=== PATIENT | male | born 1960 | race Caucasian/White ===

== ENCOUNTER 2017-11-22 00:54 | Inpatient (IN) | payer OTHER ==
[2017-11-22 01:46] LABS: ADD MAN DIFF? NO
[2017-11-22 01:50] LABS: BASOPHILS % 0.4 % (0.0-2.0); EOSINOPHILS # 0.1 10^3/ul (0.0-0.5); EOSINOPHILS % 0.6 % (0.0-7.0); HEMATOCRIT 45.3 % (42.0-52.0); HEMOGLOBIN 15.9 g/dl (14.0-18.0); LYMPHOCYTES # 1.8 10^3/ul (0.8-2.9); LYMPHOCYTES % 16.8 % (15.0-51.0); MEAN CORPUSCULAR HEMOGLOBIN 29.7 pg (29.0-33.0); MEAN CORPUSCULAR HGB CONC 35.1 g/dl (32.0-37.0); MEAN CORPUSCULAR VOLUME 84.5 fl (82.0-101.0); MEAN PLATELET VOLUME 10.3 fl (7.4-10.4); MONOCYTE # 0.7 10^3/ul (0.3-0.9); MONOCYTES % 6.4 % (0.0-11.0); NEUTROPHIL # 8.2 10^3/ul (1.6-7.5); NEUTROPHILS % 75.5 % (39.0-77.0); PLATELET COUNT 207 10^3/UL (140-415); RED BLOOD COUNT 5.36 10^6/ul (4.70-6.10); RED CELL DISTRIBUTION WIDTH 12.4 % (11.5-14.5)
[2017-11-22 01:50] LABS: WHITE BLOOD COUNT 10.9 10^3/ul (4.8-10.8)
[2017-11-22] MEDS: IOHEXOL 300MG/ML 150 ML BTL (01:59)
[2017-11-22] MEDS: SOD CHLORIDE 0.9% 100 ML (01:59)
[2017-11-22 02:09] LABS: INR 0.97
[2017-11-22 02:10] LABS: PARTIAL THROMBOPLASTIN TIME 25.8 Sec (25.0-35.0)
[2017-11-22 02:25] LABS: ALANINE AMINOTRANSFERASE 33 IU/L (13-69); ALBUMIN 4.7 g/dl (3.3-4.9); ALBUMIN/GLOBULIN RATIO 1.62; ALKALINE PHOSPHATASE 124 IU/L (42-121); ANION GAP 18 (8-16); ASPARTATE AMINO TRANSFERASE 19 IU/L (15-46); BILIRUBIN,INDIRECT 0.6 mg/dl (0-1.1); BILIRUBIN,TOTAL 0.6 mg/dl (0.2-1.3); BLOOD UREA NITROGEN 13 mg/dl (7-20); CALCIUM 9.3 mg/dl (8.4-10.2); CARBON DIOXIDE 24 mmol/L (21-31); CHLORIDE 100 mmol/L (97-110); CHOL/HDL RATIO 4.1 RATIO; CHOLESTEROL 212 mg/dl (100-200); CREATININE 0.51 mg/dl (0.61-1.24); GLUCOSE 301 mg/dl (70-220); HDL CHOLESTEROL 51 mg/dl (28-71); LDL CHOLESTEROL,CALCULATED 138 mg/dl; POTASSIUM 3.4 mmol/L (3.5-5.1); SODIUM 139 mmol/L (135-144); TOTAL PROTEIN 7.6 g/dl (6.1-8.1); TRIGLYCERIDES 114 mg/dl (0-149)
[2017-11-22 02:35] LABS: TROPONIN-I < 0.012 ng/ml (0.00-0.12)
[2017-11-22 03:10] LABS: HEMOGLOBIN A1C 10.1 % (0-5.9)
[2017-11-22] MEDS ORDERED: ONDANSETRON 4 MG INJ IV (05:30)
[2017-11-22] MEDS ORDERED: morphine 2 MG INJ IV (05:30)
[2017-11-22] MEDS ORDERED: ACETAMINOPHEN 325 MG TAB PO (05:30)
[2017-11-22] MEDS ORDERED: NACL 0.9% 3 ML SYG IV (05:30)
[2017-11-22] MEDS ORDERED: hydrALAzine 20 MG INJ IV (05:30)
[2017-11-22] MEDS ORDERED: ALBUTEROL/IPRATROPIUM (NEB) 3 ML AMP HHN (05:30)
[2017-11-22] MEDS: HEPARIN 5,000 UNIT/0.5 ML VIAL SC ×2 (09:04→21:14)
[2017-11-22] MEDS: ASPIRIN 81 MG TAB PO (09:04)
[2017-11-22] MEDS ORDERED: DEXTROSE 50% 50 ML SYRINGE IV ×2 (09:30)
[2017-11-22] MEDS ORDERED: GLUCOSE GEL 15 GRAM TUBE BUCCAL (09:30)
[2017-11-22] MEDS ORDERED: GLUCAGON 1 MG INJ IM (09:30)
[2017-11-22] MEDS ORDERED: GLUCOSE GEL 15 GRAM TUBE PO ×2 (09:30)
[2017-11-22] MEDS: INSULIN GLARGINE [LANtus] 3 ML PEN SC (10:12)
[2017-11-22 12:32] LABS: ADD UMIC NO; UR ASCORBIC ACID NEGATIVE (NEGATIVE); UR BILIRUBIN (Dip) NEGATIVE (NEGATIVE); UR BLOOD (Dip) NEGATIVE (NEGATIVE); UR CLARITY CLEAR (CLEAR); UR COLOR YELLOW (YELLOW); UR GLUCOSE (Dip) 3+ mg/dL (NEGATIVE); UR KETONES (Dip) 1+ mg/dL (NEGATIVE); UR LEUKOCYTE ESTERASE (Dip) NEGATIVE Leu/ul (NEGATIVE); UR NITRITE (Dip) NEGATIVE (NEGATIVE); UR TOTAL PROTEIN (Dip) NEGATIVE (NEGATIVE); UR UROBILINOGEN (Dip) NEGATIVE (NEGATIVE)
[2017-11-22] MEDS: INSULIN ASPART [NOVOLOG] 3 ML PEN SC ×3 (12:47→20:12)
[2017-11-22 12:52] LABS: AMPHETAMINE/METHAMPHETAMINE Negative (NEGATIVE); BARBITURATES Negative (NEGATIVE); BENZODIAZEPINES Negative (NEGATIVE); CANNABINOIDS Negative (NEGATIVE); COCAINE Negative (NEGATIVE); OPIATES Negative (NEGATIVE)
[2017-11-22] MEDS ORDERED: INSULIN ASPART [NOVOLOG] 3 ML PEN SC (18:00)
[2017-11-22] MEDS: LINAGLIPTIN 5 MG TABLET PO (20:05)
[2017-11-22] MEDS: ATORVASTATIN 20 MG TAB PO (21:11)
[2017-11-22] MEDS: hydrALAzine 20 MG INJ IV (21:19)
[2017-11-23] MEDS: ACCU-CHEK XX (01:45)
[2017-11-23 05:46] LABS: ADD MAN DIFF? NO
[2017-11-23 05:53] LABS: WHITE BLOOD COUNT 6.4 10^3/ul (4.8-10.8)
[2017-11-23 05:53] LABS: BASOPHILS % 0.5 % (0.0-2.0); EOSINOPHILS # 0.1 10^3/ul (0.0-0.5); EOSINOPHILS % 1.6 % (0.0-7.0); HEMATOCRIT 47.6 % (42.0-52.0); HEMOGLOBIN 16.6 g/dl (14.0-18.0); LYMPHOCYTES # 2.1 10^3/ul (0.8-2.9); LYMPHOCYTES % 32.8 % (15.0-51.0); MEAN CORPUSCULAR HEMOGLOBIN 29.7 pg (29.0-33.0); MEAN CORPUSCULAR HGB CONC 34.9 g/dl (32.0-37.0); MEAN CORPUSCULAR VOLUME 85.2 fl (82.0-101.0); MEAN PLATELET VOLUME 10.6 fl (7.4-10.4); MONOCYTE # 0.5 10^3/ul (0.3-0.9); MONOCYTES % 7.6 % (0.0-11.0); NEUTROPHIL # 3.7 10^3/ul (1.6-7.5); NEUTROPHILS % 57.3 % (39.0-77.0); PLATELET COUNT 231 10^3/UL (140-415); RED BLOOD COUNT 5.59 10^6/ul (4.70-6.10); RED CELL DISTRIBUTION WIDTH 12.3 % (11.5-14.5)
[2017-11-23 06:05] LABS: HEMOGLOBIN A1C 10.1 % (0-5.9)
[2017-11-23 06:21] LABS: ALANINE AMINOTRANSFERASE 31 IU/L (13-69); ALBUMIN 4.2 g/dl (3.3-4.9); ALBUMIN/GLOBULIN RATIO 1.44; ALKALINE PHOSPHATASE 89 IU/L (42-121); ANION GAP 17 (8-16); ASPARTATE AMINO TRANSFERASE 22 IU/L (15-46); BILIRUBIN,INDIRECT 0.6 mg/dl (0-1.1); BILIRUBIN,TOTAL 0.6 mg/dl (0.2-1.3); BLOOD UREA NITROGEN 14 mg/dl (7-20); CALCIUM 9.2 mg/dl (8.4-10.2); CARBON DIOXIDE 24 mmol/L (21-31); CHLORIDE 104 mmol/L (97-110); CHOL/HDL RATIO 4.8 RATIO; CHOLESTEROL 217 mg/dl (100-200); CREATININE 0.53 mg/dl (0.61-1.24); GLUCOSE 179 mg/dl (70-220); HDL CHOLESTEROL 45 mg/dl (28-71); LDL CHOLESTEROL,CALCULATED 137 mg/dl; POTASSIUM 3.6 mmol/L (3.5-5.1); SODIUM 141 mmol/L (135-144); TOTAL PROTEIN 7.1 g/dl (6.1-8.1); TRIGLYCERIDES 174 mg/dl (0-149)
[2017-11-23] MEDS: INSULIN ASPART [NOVOLOG] 3 ML PEN SC ×9 (07:35→20:56)
[2017-11-23] MEDS: ASPIRIN 81 MG TAB PO (08:58)
[2017-11-23] MEDS: LINAGLIPTIN 5 MG TABLET PO (08:58)
[2017-11-23] MEDS: HEPARIN 5,000 UNIT/0.5 ML VIAL SC ×2 (08:59→20:59)
[2017-11-23] MEDS: INSULIN GLARGINE [LANtus] 3 ML PEN SC (09:00)
[2017-11-23] MEDS: LISINOPRIL 10 MG TAB PO (15:00)
[2017-11-23] MEDS: ATORVASTATIN 20 MG TAB PO (20:59)
[2017-11-24] MEDS: ACCU-CHEK XX (01:45)
[2017-11-24] MEDS: LINAGLIPTIN 5 MG TABLET PO (09:26)
[2017-11-24] MEDS: ASPIRIN 81 MG TAB PO (09:26)
[2017-11-24] MEDS: LISINOPRIL 10 MG TAB PO (09:27)
[2017-11-24] MEDS: HEPARIN 5,000 UNIT/0.5 ML VIAL SC ×2 (09:29→20:13)
[2017-11-24] MEDS: INSULIN ASPART [NOVOLOG] 3 ML PEN SC ×7 (11:00→20:12)
[2017-11-24] MEDS: INSULIN GLARGINE [LANtus] 3 ML PEN SC (11:01)
[2017-11-24] MEDS: ATORVASTATIN 20 MG TAB PO (21:36)
[2017-11-25] MEDS: ACCU-CHEK XX ×2 (02:30→20:04)
[2017-11-25] MEDS: INSULIN ASPART [NOVOLOG] 3 ML PEN SC ×7 (08:49→20:04)
[2017-11-25] MEDS: HEPARIN 5,000 UNIT/0.5 ML VIAL SC ×2 (08:50→20:04)
[2017-11-25] MEDS: LINAGLIPTIN 5 MG TABLET PO (08:50)
[2017-11-25] MEDS: ASPIRIN 81 MG TAB PO (08:51)
[2017-11-25] MEDS: LISINOPRIL 10 MG TAB PO (08:53)
[2017-11-25] MEDS: INSULIN GLARGINE [LANtus] 3 ML PEN SC (09:00)
[2017-11-25] MEDS: ATORVASTATIN 20 MG TAB PO (20:02)
[2017-11-26] MEDS: LINAGLIPTIN 5 MG TABLET PO (08:01)
[2017-11-26] MEDS: ASPIRIN 81 MG TAB PO (08:01)
[2017-11-26] MEDS: LISINOPRIL 10 MG TAB PO (08:06)
[2017-11-26] MEDS: HEPARIN 5,000 UNIT/0.5 ML VIAL SC (08:10)
[2017-11-26] MEDS: INSULIN GLARGINE [LANtus] 3 ML PEN SC (08:13)
[2017-11-26] MEDS: INSULIN ASPART [NOVOLOG] 3 ML PEN SC ×2 (08:14→08:15)
[2017-11-26] MEDS: INFLUENZA VIRUS VACCINE 0.5 ML (DISPENSING) IM* (09:00)
== END 2017-11-26 11:55 | disposition home or self-care (01) | DRG 66 ==
LOC: MS4 11-24 02:07 → E/R 00:54 → MS3 04:06
PROVIDERS: Internal Medicine
DX: I63.9 Cerebral infarction, unspecified (principal); E11.65 Type 2 diabetes mellitus with hyperglycemia; I10 Essential (primary) hypertension; R53.1 Weakness; R29.810 Facial weakness; R47.81 Slurred speech; E78.5 Hyperlipidemia, unspecified; E87.6 Hypokalemia; Z79.4 Long term (current) use of insulin; Z79.84 Long term (current) use of oral hypoglycemic drugs; Z79.82 Long term (current) use of aspirin
CPT/HCPCS: 70450; 70496; 70498; 70551; 71045; 80053; 80061; 80307; 81003; 82962; 83036; 84443; 84484; 85025; 85610; 85730; 92610; 93005; 93306; 97161; 97165

== ENCOUNTER → 2017-11-27 | Outpatient (CLI) | payer SELFPAY | END | disposition home or self-care (01) | LOC: DIB 10:28 | DX: Z02.9 Encounter for administrative examinations, unspecified (principal) ==